=== PATIENT | female | born 1965 | race Caucasian/White ===

== ENCOUNTER 2019-09-23 12:36 | Emergency (ER) | payer MEDICAID ==
[~2019-09-23] VITALS: Ht 170.2 cm; Wt 82.1 kg
[2019-09-23 12:59] VITALS: Ht 170.2 cm; Wt 82.1 kg
[2019-09-23 13:59] VITALS: BP 155/101
== END 2019-09-23 13:59 | disposition home or self-care (01) ==
LOC: ED 12:36
DX: S60.562A Insect bite (nonvenomous) of left hand, initial encounter (principal); L03.114 Cellulitis of left upper limb; W57.XXXA Bitten or stung by nonvenomous insect and other nonvenomous arthropods, initial encounter; Y93.89 Activity, other specified; Y92.89 Other specified places as the place of occurrence of the external cause; Y99.8 Other external cause status
CPT/HCPCS: J0696; J1200